=== PATIENT | male | born 1930 | race Caucasian/White ===

== ENCOUNTER 2016-09-16 16:20 | Inpatient (IN) | payer OTHER, MEDICARE ==
[2016-09-16] VITALS (7 sets, daily range): BP systolic 132–189; BP diastolic 72–84; PULSE 80–105; RESP 18–24; TEMP 98.2; O2SAT 93–95
[~2016-09-16 16:20] MED LIST: ADVA250A INH; ALBU0.086 INH; AMLO5TAB22 PO; ASPI81TA82 PO; CARD8TAB6 PO; DOCU1CAP39 PO; HYDR-2768 PO; LEVA500T PO; MEDR4PAK3 PO; MILKSUS5 PO; NIFE20 PO; PROS5TAB2 PO; SIMV5TAB3 PO; SULF500 PO; TAMS0.4C67 PO
--- NOTE | 2016-09-16 16:32 | PD ---
HPI . right arm pain/shoulder down to wrist also shortness of breath & coughing Chief Complaint: right arm pain/shoulder down to wrist Time Seen by Provider: 16:33 Travel History International Travel<30 days: No Contact w/Intl Traveler<30days: No Traveled to known affect area: No History of Present Illness HPI 85-year-old male with history of COPD here with complaints of right arm pain extending from the shoulder down to the wrist. He tells me that he fell about 2 days ago and has not been able to move his right arm. His pain starts in the shoulder and ranges down all the way to the wrist. He also tells me that he has had some significant shortness of breath and coughing. He denies any fever or chills or recent illness. He denies head injury or loss of consciousness. PFSH Past Medical History Anemia: Yes Arthritis: Yes Asthma: Yes Anxiety: Yes Depression: Yes Cancer: Yes (SKIN CA) Cardiovascular Problems: Yes High Cholesterol: Yes COPD: Yes Diminished Hearing: No Endocrine: No Gastrointestinal Disorders: Yes Genitourinary: Yes Headaches: Yes Hypertension: Yes Immune Disorder: No Musculoskeletal: Yes Neurologic: No Psychiatric: No Reproductive: No Respiratory: Yes Ulcer: Yes (BY HISTORY) Past Surgical History Abdominal Surgery: Yes (EDDIE. ING. HERNIA REP., CHOLECYSTECTOMY) Cholecystectomy: Yes Pacemaker: No Other Surgery: Yes (BACK SURGERY) Social History Alcohol Use: No Tobacco Use: No Substance Use: No Allergies-Medications (Allergen,Severity, Reaction): Coded Allergies: No Known Allergies (Verified , 09/16/16) Reported Meds & Prescriptions Reported Meds & Active Scripts Active Reported Donepezil Hydrochloride 5 Mg Tab 1 Tab PO DAILY Amlodipine (Amlodipine Besylate) 5 Mg Tab 5 Mg PO DAILY Tamsulosin (Tamsulosin HCl) 0.4 Mg Cap 0.4 Mg PO HS Citalopram (Citalopram Hydrobromide) 20 Mg Tab 20 Mg PO DAILY Multivitamin Adults (Multiple Vitamins W/ Minerals) 1 Tab 1 Tab PO DAILY Carvedilol 12.5 Mg Tab 12.5 Mg PO BID Aspirin Low Dose (Aspirin) 81 Mg Chew 81 Mg CHEW DAILY Review of Systems General / Constitutional: No: Fever Eyes: No: Visual changes HENT: No: Headaches Cardiovascular: No: Chest Pain or Discomfort Respiratory: Positive: Cough, Shortness of Breath Gastrointestinal: No: Abdominal Pain Genitourinary: No: Dysuria Musculoskeletal: Positive: Pain (right shoulder/arm/ wrist/ ) Skin: No Rash Neurologic: No: Weakness Psychiatric: No: Depression Endocrine: No: Polydipsia Hematologic/Lymphatic: No: Easy Bruising Physical Exam Exam Limitations: Poor Historian Narrative GENERAL: AAO x 3, no acute distress, Well-nourished, well-developed patient. SKIN: Warm and dry. No visible rashes or bruising. HEAD: Normocephalic and atraumatic. EYES: No scleral icterus. No injection or drainage. ENT: No nasal drainage noted. Mucous membranes pink. Airway patent. NECK: Supple, trachea midline. No JVD. CARDIOVASCULAR: tachycardic on examination RESPIRATORY: Diminished breath sounds bilaterally. Expiratory wheeze on auscultation. Rhonchi throughout. Hint of scattered rales at the base GASTROINTESTINAL: Abdomen soft, non-tender, nondistended. EXTREMITIES: Right upper extremity is edematous.radial and ulnar pulses normal, obvious deformity of right shoulder, unable to move joint at all. dependent edema in the right upper extremity, no tenderness over distal radius/ulna. no tenderness of elbow BACK: Nontender without obvious deformity. No CVA tenderness. PSYCH: AAO x 3, normal affect. Data Data Last Documented VS Vital Signs Date Time Temp Pulse Resp B/P Pulse Ox O2 Delivery O2 Flow Rate FiO2 09/16/16 17:05 105 24 184/79 94 Room Air 09/16/16 16:40 98.2 Orders Chest, Single Ap (09/16/16 16:58) Shoulder, Limited(2vws) (09/16/16 16:48) MDM Medical Decision Making Medical Screen Exam Complete: Yes Emergency Medical Condition: Yes Medical Record Reviewed: Yes Differential Diagnosis dislocated shoulder, fracture, AC joint separation, COPD exacerbation, compensated COPD, Narrative Course This is an 85-year-old male presented via emergency medical services with complaints of possible right wrist pain. Upon further discussion patient actually has right shoulder pain. He sustained a fall and is unable to move his right shoulder. There is an obvious deformity of the shoulder and it appears to be out of place, also there may be an underlying fracture. He is short of breath at rest with distinct gurgling heard clearly at the bedside. On auscultation his breath sounds are significantly diminished. He has rhonchi and wheezing present on examination. He also has what sounds like possible Rales in the bases. Patient becomes tachypneic with talking. Patient needs a medical bed for further evaluation. He is a poor historian. In the meantime, I have ordered a right shoulder xray and CXR. 17:27 I have discussed the case with Arturo Quintana. He will disposition this patient. Condition: Stable Samantha Smith September 16, 2016 16:32 significantly diminished. He has rhonchi and wheezing present on examination. He also has what sounds like possible Rales in the bases. Patient becomes tachypneic with talking. Patient needs a medical bed for further evaluation. He is a poor historian. In the meantime, I have ordered a right shoulder xray and CXR. Condition: Stable Samantha Smith September 16, 2016 16:32
[2016-09-16] MEDS ORDERED: ASPI81CH37 CHEW (17:21)
--- NOTE | 2016-09-16 17:21 | RADRPT ---
EXAM DATE/TIME: 09/16/2016 17:06 [facility] COMPARISON: No previous studies available for comparison. INDICATIONS : Right shoulder pain after fall. MEDICAL HISTORY : None. SURGICAL HISTORY : None. ENCOUNTER: Initial ACUITY: 2 days PAIN SCORE: 10/10 LOCATION: Right shoulder. FINDINGS: Limited 2 views of the right shoulder demonstrates a comminuted fracture through the proximal humerus . Due to discomfort, the humeral head is poorly profiled and I cannot determine if there is intra-art icular extension. Degenerative spurring of the a.c. joint. The glenoid and scapula appear to be intac t. Visualized portions of the adjacent lung are clear. CONCLUSION: 1. Comminuted fracture of the proximal humerus. 2. Degenerative spurring of the a.c. joint Abiodun Palencia MD on September 16, 2016 at 17:18 Board Certified Radiologist. This report was verified electronically.
[2016-09-16] MEDS ORDERED: DONE1TAB90 PO (17:25)
[2016-09-16] MEDS ORDERED: AMLO5TAB2 PO (17:25)
[2016-09-16] MEDS ORDERED: TAMS0.4C4 PO (17:25)
[2016-09-16] MEDS ORDERED: CARV12.52 PO (17:25)
[2016-09-16] MEDS ORDERED: CITA20TA4 PO (17:25)
[2016-09-16] MEDS ORDERED: MULT1TAB84 PO (17:25)
--- NOTE | 2016-09-16 17:25 | RADRPT ---
EXAM DATE/TIME: 09/16/2016 17:02 [facility] COMPARISON: CHEST SINGLE AP, April 25, 2013, 11:12. INDICATIONS : Short of breath, wheezing, and cough. MEDICAL HISTORY : None. SURGICAL HISTORY : None. ENCOUNTER: Initial ACUITY: >1 year PAIN SCORE: 0/10 LOCATION: Bilateral chest FINDINGS: A single view of the chest demonstrates the lungs to be symmetrically aerated without evidence of mas s, infiltrate or effusion. The cardiomediastinal contours are unremarkable. Osseous structures are intact. CONCLUSION: Normal examination. Diffuse interstitial prominence throughout the lungs Regino Vazquez MD on September 16, 2016 at 17:23 Board Certified Radiologist. This report was verified electronically.
--- NOTE | 2016-09-16 17:31 | PD ---
HPI Chief Complaint: Fall Time Seen by Provider: 17:30 Travel History International Travel<30 days: No Contact w/Intl Traveler<30days: No Traveled to known affect area: No History of Present Illness HPI 85-year-old male presents the emergency department status post fall 2 days ago. Patient had x-rays done at triage showing a comminuted fracture of the right proximal humerus. Patient is also complaining of increased shortness of breath. He has a history of COPD and chronic lung disease. Chest x-ray shows no acute process per radiologist that was performed in triage. Patient is unable to move his right arm. He is here for medical clearance. Patient complains only of pain in the right shoulder. He denies numbness, tingling, but is unable to move the shoulder secondary to his fracture. Patient has chronic COPD with chronic wheezing, but does report some increased mucus production the past several days. He denies fever, chills, or other symptoms. Patient uses Spiriva and nebulizers at home. PFSH Past Medical History Anemia: Yes Arthritis: Yes Asthma: Yes Anxiety: Yes Depression: Yes Cancer: Yes (SKIN CA) Cardiovascular Problems: Yes High Cholesterol: Yes COPD: Yes Diminished Hearing: No Endocrine: No Gastrointestinal Disorders: Yes Genitourinary: Yes Headaches: Yes Hypertension: Yes Immune Disorder: No Implanted Vascular Access Dvce: No Musculoskeletal: Yes Neurologic: No Psychiatric: No Reproductive: No Respiratory: Yes Ulcer: Yes (BY HISTORY) ?: Not Past Surgical History Abdominal Surgery: Yes (EDDIE. ING. HERNIA REP., CHOLECYSTECTOMY) Cholecystectomy: Yes Pacemaker: No Other Surgery: Yes (BACK SURGERY) Social History Alcohol Use: No Tobacco Use: No Substance Use: No Allergies-Medications (Allergen,Severity, Reaction): Coded Allergies: No Known Allergies (Verified , 09/16/16) Reported Meds & Prescriptions Reported Meds & Active Scripts Active Reported Donepezil Hydrochloride 5 Mg Tab 1 Tab PO DAILY Amlodipine (Amlodipine Besylate) 5 Mg Tab 5 Mg PO DAILY Tamsulosin (Tamsulosin HCl) 0.4 Mg Cap 0.4 Mg PO HS Citalopram (Citalopram Hydrobromide) 20 Mg Tab 20 Mg PO DAILY Multivitamin Adults (Multiple Vitamins W/ Minerals) 1 Tab 1 Tab PO DAILY Carvedilol 12.5 Mg Tab 12.5 Mg PO BID Aspirin Low Dose (Aspirin) 81 Mg Chew 81 Mg CHEW DAILY Physical Exam Narrative GENERAL: Patient appears in Mild distress SKIN: Warm and dry. Normal color. Normal turgor. No ecchymosis. HEAD: Atraumatic. Normocephalic. EYES: Pupils equal and round. No scleral icterus. No injection or drainage. ENT: No nasal bleeding or discharge. Mucous membranes pink and moist. NECK: Trachea midline. No JVD. Supple and nontender. CARDIOVASCULAR: Regular rate and rhythm. RESPIRATORY: No accessory muscle use. Diffuse mild wheezes and rhonchi to auscultation. Breath sounds equal bilaterally. GASTROINTESTINAL: Abdomen soft, non-tender, nondistended. Hepatic and splenic margins not palpable. MUSCULOSKELETAL: Extremities without clubbing, cyanosis, or edema. No obvious deformities. Patient is unable to move his right arm secondary to his fracture in the proximal humerus. Patient has normal neurovascular exam to the distal right upper extremity. Normal photographer finish strength. Brisk capillary refill. No other significant muscle skeletal findings are noted. NEUROLOGICAL: Awake and alert. No obvious cranial nerve deficits. Motor grossly within normal limits. Five out of 5 muscle strength in the arms and legs. Normal speech. PSYCHIATRIC: Appropriate mood and affect; insight and judgment normal. Data Data Last Documented VS Vital Signs Date Time Temp Pulse Resp B/P Pulse Ox O2 Delivery O2 Flow Rate FiO2 09/16/16 18:16 95 Room Air 09/16/16 17:05 105 24 184/79 09/16/16 16:40 98.2 Orders Chest, Single Ap (09/16/16 16:58) Shoulder, Limited(2vws) (09/16/16 16:48) Complete Blood Count With Diff (09/16/16 17:49) Comprehensive Metabolic Panel (09/16/16 17:49) B-Type Natriuretic Peptide (09/16/16 17:49) Act Partial Throm Time (Ptt) (09/16/16 17:49) Prothrombin Time / Inr (Pt) (09/16/16 17:49) Magnesium (Mg) (09/16/16 17:49) Ckmb (Isoenzyme) Profile (09/16/16 17:49) Troponin I (09/16/16 17:49) Iv Access Insert/Monitor (09/16/16 17:49) Electrocardiogram (09/16/16:49) Ecg Monitoring (09/16/16 17:49) Oximetry (09/16/16 17:49) Oxygen Administration (09/16/16 17:49) Sodium Chloride 0.9% Flush (Ns Flush) (09/16/16 18:00) Albuterol-Ipratropium Neb (Duoneb Neb) (09/16/16 18:00) CKMB (09/16/16 18:03) CKMB% (09/16/16 18:03) Sling And Swathe (09/16/16 ) Admit Order (Ed Use Only) (09/16/16 19:14) Consult Orthopedic (09/16/16 ) Labs Laboratory Tests Test 09/16/16 18:03 White Blood Count 13.9 TH/MM3 Red Blood Count 4.54 MIL/MM3 Hemoglobin 13.0 GM/DL Hematocrit 39.8 % Mean Corpuscular Volume 87.7 FL Mean Corpuscular Hemoglobin 28.7 PG Mean Corpuscular Hemoglobin 32.7 % Concent Red Cell Distribution Width 13.3 % Platelet Count 284 TH/MM3 Mean Platelet Volume 8.1 FL Neutrophils (%) (Auto) 78.7 % Lymphocytes (%) (Auto) 7.1 % Monocytes (%) (Auto) 10.6 % Eosinophils (%) (Auto) 2.6 % Basophils (%) (Auto) 1.0 % Neutrophils # (Auto) 10.9 TH/MM3 Lymphocytes # (Auto) 1.0 TH/MM3 Monocytes # (Auto) 1.5 TH/MM3 Eosinophils # (Auto) 0.4 TH/MM3 Basophils # (Auto) 0.1 TH/MM3 CBC Comment DIFF FINAL Differential Comment Prothrombin Time 11.4 SEC Prothromb Time International 1.0 RATIO Ratio Activated Partial 30.6 SEC Thromboplast Time Sodium Level 135 MEQ/L Potassium Level 3.8 MEQ/L Chloride Level 97 MEQ/L Carbon Dioxide Level 28.7 MEQ/L Anion Gap 9 MEQ/L Blood Urea Nitrogen 47 MG/DL Creatinine 2.87 MG/DL Estimat Glomerular Filtration 21 ML/MIN Rate Random Glucose 117 MG/DL Calcium Level 8.6 MG/DL Magnesium Level 2.4 MG/DL Total Bilirubin 0.8 MG/DL Aspartate Amino Transf 18 U/L (AST/SGOT) Alanine Aminotransferase 14 U/L (ALT/SGPT) Alkaline Phosphatase 79 U/L Total Creatine Kinase 227 U/L Creatine Kinase MB 4.2 NG/ML Troponin I LESS THAN 0.02 NG/ML B-Type Natriuretic Peptide 29 PG/ML Total Protein 7.3 GM/DL Albumin 3.5 GM/DL MDM Medical Decision Making Medical Screen Exam Complete: Yes Emergency Medical Condition: Yes Medical Record Reviewed: Yes Differential Diagnosis Fall. Shortness of breath. COPD. Right proximal humeral fracture. Narrative Course Patient is medically stable at time of exam. Labs ordered including CBC, CMP, cardiac panel, EKG. Chest x-ray was already ordered out for as well as his right shoulder x-ray. Right shoulder x-ray showed a comminuted fracture of the proximal right humerus. Chest x-ray showed chronic findings without acute per radiologist. EKG shows sinus rhythm with occasional supraventricular premature complexes. CBC shows mild leukocytosis of 13.9. Coagulation studies are unremarkable. Chemistries are remarkable for sodium of 135. Chloride of 97. He went 47. Creatinine of 2.87. This is markedly elevated from previous. Random glucose is 117. Troponin is less than 0.02. ProBNP is 29 Patient is placed in a shoulder immobilizer. Call was placed to the hospitalist for admission due to the patient's acute renal failure. Diagnosis Primary Impression: Elevated serum creatinine Additional Impressions: COPD (chronic obstructive pulmonary disease) Qualified Code: J44.9 - Chronic obstructive pulmonary disease, unspecified COPD type Closed comminuted right humeral fracture Condition: Stable Zak Quintana September 16, 2016 17:31
[2016-09-16] MEDS ORDERED: RESP: ALBUTEROL 2.5 MG/IPRATROPIUM 0.5 MG NEB (SCH) INH ONE (18:00)
[2016-09-16] MEDS ORDERED: SODIUM CHLORIDE 0.9% FLUSH 10 ML FLUSH IVF PRN (18:00)
[2016-09-16 18:17] LABS: AUTOMATED NEUTROPHIL # 10.9 TH/MM3 (1.8-7.7); BASOPHIL # 0.1 TH/MM3 (0-0.2); EOSINOPHIL # 0.4 TH/MM3 (0-0.4); EOSINOPHIL % 2.6 % (0.0-4.0); HEMATOCRIT 39.8 % (39.0-51.0); HEMO FLAGS DIFF FINAL; LYMPH % 7.1 % (9.0-44.0); MEAN CELL VOLUME 87.7 FL (80.0-100.0); MEAN CORPUSCULAR HEMOGLOBIN 28.7 PG (27.0-34.0); MEAN CORPUSCULAR HGB CONC 32.7 % (32.0-36.0); MONO % 10.6 % (0.0-8.0); NEUT % 78.7 % (16.0-70.0); PLATELET COUNT 284 TH/MM3 (150-450); RED BLOOD COUNT 4.54 MIL/MM3 (4.50-5.90); RED CELL DISTRIBUTION WIDTH 13.3 % (11.6-17.2); WHITE BLOOD COUNT 13.9 TH/MM3 (4.0-11.0)
[2016-09-16 18:34] LABS: ALT (GPT) 14 U/L (12-78); ANION GAP 9 MEQ/L (5-15); AST (GOT) 18 U/L (15-37); BICARBONATE 28.7 MEQ/L (21.0-32.0); BLOOD UREA NITROGEN 47 MG/DL (7-18); CHLORIDE 97 MEQ/L (98-107); GLOMERULAR FILTRATION RATE 21 ML/MIN (>89); MAGNESIUM 2.4 MG/DL (1.5-2.5); POTASSIUM 3.8 MEQ/L (3.5-5.1); SODIUM (NA) 135 MEQ/L (136-145)
[2016-09-16 18:39] LABS: ALKALINE PHOSPHATASE 79 U/L (45-117); CREATINE KINASE 227 U/L (39-308); TOTAL BILIRUBIN ADULT 0.8 MG/DL (0.2-1.0)
[2016-09-16 18:44] LABS: APTT (PATIENT) 30.6 SEC (24.3-30.1); PROTHROMBIN TIME - PATIENT 11.4 SEC (9.8-11.6)
[2016-09-16 18:51] LABS: CKMB 4.2 NG/ML (0.5-3.6)
[2016-09-16] MEDS ORDERED: NALOXONE HCL 0.4 MG/ML AMP IV PRN (19:45)
[2016-09-16] MEDS ORDERED: SODIUM CHLORIDE 0.9% FLUSH 10 ML FLUSH IV FLUSH PRN (19:45)
[2016-09-16] MEDS ORDERED: SENNOSIDES 8.6 MG TAB PO PRN (19:45)
[2016-09-16] MEDS ORDERED: ACETAMINOPHEN 325 MG TAB PO PRN (19:45)
[2016-09-16] MEDS ORDERED: ONDANSETRON HCL 4 MG/2 ML VIAL IVP PRN (19:45)
[2016-09-16] MEDS ORDERED: RESP: ALBUTEROL 2.5 MG/IPRATROPIUM 0.5 MG NEB (PRN) NEB (20:00)
[2016-09-16] MEDS: SODIUM CHLOR 0.9% 1000 ML INJ 1,000 ML IV SCH (20:58)
[2016-09-16] MEDS: SODIUM CHLORIDE 0.9% FLUSH 10 ML FLUSH IV FLUSH SCH (21:00)
[2016-09-16] MEDS: RESP: ALBUTEROL 2.5 MG/IPRATROPIUM 0.5 MG NEB (SCH) NEB (21:24)
--- NOTE | 2016-09-16 23:54 | HHI.HP ---
[facility] Service [facility] Primary Care Physician Chaim Hamm MD Admission Diagnosis Elevated Creatinine/Right humeral Fracture. Diagnoses: Travel History International Travel<30 Days: No Contact w/Intl Traveler <30 Da: No Traveled to Known Affected Are: No History of Present Illness History from patient, ER physician communication, and review of medical records. Patient reported that he was walking on his lawn and tripped on his toes and fell onto his right side. He reports that he simply tripped. She denies any premonitory symptoms prior to this fall. Denies hitting his head. Denies loss of consciousness. Patient denies any recent fevers/nausea/vomiting/diarrhea/urinary burning or pain on urination. Denies any hematemesis/hematochezia/melena/hematuria. Patient states that the fall actually happened on Tuesday. However for the next 1-1/2 days, he was having increasing pain on his right upper extremity around the shoulder areas and he finally decided to come to hospital. Denies history of frequent falls. Patient is noted to be coughing during my interview. He reports that this is his chronic cough for past several months. He does have history of COPD and uses inhalers at home. He reports that at one point, he was prescribed oxygen. Somehow the oxygen company is no longer in business here and therefore he states he lost his oxygen. He is requesting whether he could be placed back on oxygen at home because of this coughing episodes. Review of Systems Except as stated in HPI: all other systems reviewed are Neg Past Family Social History Past Medical History Hypertension COPD Hyperlipidemia Obesity Past Surgical History cholecystectomy appendectomy hernia sx back sx bunion left knee sx Allergies: Coded Allergies: No Known Allergies (Verified , 09/16/16) Family History none Social History used to smoke, quit 20yrs ago used to drink socially, but quit that no drug abuse lives with , still driving, has 2 dogs Physical Exam Vital Signs Vital Signs Date Time Temp Pulse Resp B/P Pulse Ox O2 Delivery O2 Flow Rate FiO2 09/16/16 23:40 64 18 155/78 94 Nasal Cannula 2 09/16/16 21:52 92 18 165/74 94 Nasal Cannula 2 09/16/16 21:24 95 Nasal Cannula 2.00 09/16/16 18:16 95 Room Air 09/16/16 18:16 95 Room Air 09/16/16 17:05 105 24 184/79 94 Room Air 09/16/16 16:40 98.2 104 22 189/84 94 Physical Exam GENERAL: This is a well-nourished, well-developed patient, in no apparent distress. SKIN: No rashes, ecchymoses or lesions. Cool and dry. HEAD: Atraumatic. Normocephalic. No temporal or scalp tenderness. EYES: No scleral icterus. No injection or drainage. ENT: Nose without bleeding, purulent drainage or septal hematoma. Airway patent. NECK: Trachea midline. No JVD CARDIOVASCULAR: Regular rate and rhythm without murmurs, gallops, or rubs. RESPIRATORY: Bilaterally decreased air entry. No significant rales or wheezing. However does have quite a bit of upper airway throat congestion with cough. GASTROINTESTINAL: Abdomen soft, non-tender, nondistended. No guarding. MUSCULOSKELETAL: Extremities without clubbing, cyanosis, or edema. . No calf tenderness. NEUROLOGICAL: Awake and alert. Right upper extremity in sling. Strong right radial pulses. Able to wiggle his fingers. Normal speech. Laboratory Laboratory Tests Test 09/16/16 18:03 White Blood Count 13.9 Red Blood Count 4.54 Hemoglobin 13.0 Hematocrit 39.8 Mean Corpuscular Volume 87.7 Mean Corpuscular Hemoglobin 28.7 Mean Corpuscular Hemoglobin 32.7 Concent Red Cell Distribution Width 13.3 Platelet Count 284 Mean Platelet Volume 8.1 Neutrophils (%) (Auto) 78.7 Lymphocytes (%) (Auto) 7.1 Monocytes (%) (Auto) 10.6 Eosinophils (%) (Auto) 2.6 Basophils (%) (Auto) 1.0 Neutrophils # (Auto) 10.9 Lymphocytes # (Auto) 1.0 Monocytes # (Auto) 1.5 Eosinophils # (Auto) 0.4 Basophils # (Auto) 0.1 CBC Comment DIFF FINAL Differential Comment Prothrombin Time 11.4 Prothromb Time International 1.0 Ratio Activated Partial 30.6 Thromboplast Time Sodium Level 135 Potassium Level 3.8 Chloride Level 97 Carbon Dioxide Level 28.7 Anion Gap 9 Blood Urea Nitrogen 47 Creatinine 2.87 Estimat Glomerular Filtration 21 Rate Random Glucose 117 Calcium Level 8.6 Magnesium Level 2.4 Total Bilirubin 0.8 Aspartate Amino Transf 18 (AST/SGOT) Alanine Aminotransferase 14 (ALT/SGPT) Alkaline Phosphatase 79 Total Creatine Kinase 227 Creatine Kinase MB 4.2 Troponin I LESS THAN 0.02 B-Type Natriuretic Peptide 29 Total Protein 7.3 Albumin 3.5 Result Diagram: 09/16/16 1803 09/16/16 180 Imaging Last 48 hours Impressions Chest X-Ray [id number]/16/[id number] Signed Impressions: Service Date/Time: August 17:02 - CONCLUSION: Normal examination. Diffuse interstitial prominence throughout the lungs Regino Vazquez MD Shoulder X-Ray [id number] Signed Impressions: Service Date/Time: , September 16, 2016 17:06 - CONCLUSION: 1. Comminuted fracture of the proximal humerus. 2. Degenerative spurring of the a.c. joint Abiodun Palencia MD Assessment and Plan Assessment and Plan Impression: Status post fallwith right proximal humerus fracture Cough and congestionmostly from upper airway. Lung exam is clear. Chest x- ray is clear. Acute renal failureper patient, he has no prior history of renal insufficiency. Likely this is from dehydration. Hypertension COPD Hyperlipidemia Obesity Plan: IV hydration. Will follow BMP for improvement of renal function. Right upper extremity with sling. Orthopedics was consulted. Will follow recommendations. As to his upper airway congestion was cough, we would monitor him clinically. He has no fever, no leukocytosis, chest x-ray is clear. He also reports of chronicity of this cough. Would monitor for signs and symptoms of infection. Resume home meds. DVT prophylaxiswith heparin.. Discussed Condition With Patient, ER physician, patient's nurse Maggie Sutton MD September 16, 2016 23:54
[2016-09-17] VITALS (11 sets, daily range): BP systolic 134–186; BP diastolic 63–89; PULSE 67–99; RESP 17–20; TEMP 96.3–98.2; O2SAT 92–97
[2016-09-17] MEDS ORDERED: RESP: ALBUTEROL 2.5 MG/IPRATROPIUM 0.5 MG NEB (PRN) NEB (00:15)
[2016-09-17] MEDS: RESP: ALBUTEROL 2.5 MG/IPRATROPIUM 0.5 MG NEB (SCH) NEB ×3 (02:49→16:00)
[2016-09-17 07:32] LABS: AUTOMATED NEUTROPHIL # 8.1 TH/MM3 (1.8-7.7); BASOPHIL # 0.1 TH/MM3 (0-0.2); BASOPHIL % 0.6 % (0.0-2.0); EOSINOPHIL # 0.4 TH/MM3 (0-0.4); EOSINOPHIL % 3.5 % (0.0-4.0); HEMATOCRIT 36.1 % (39.0-51.0); HEMO FLAGS DIFF FINAL; LYMPH % 11.1 % (9.0-44.0); LYMPHOCYTE # 1.2 TH/MM3 (1.0-4.8); MEAN CELL VOLUME 87.6 FL (80.0-100.0); MEAN CORPUSCULAR HEMOGLOBIN 28.8 PG (27.0-34.0); MEAN CORPUSCULAR HGB CONC 32.8 % (32.0-36.0); MONO % 10.9 % (0.0-8.0); NEUT % 73.9 % (16.0-70.0); PLATELET COUNT 237 TH/MM3 (150-450); RED BLOOD COUNT 4.12 MIL/MM3 (4.50-5.90); RED CELL DISTRIBUTION WIDTH 13.5 % (11.6-17.2); WHITE BLOOD COUNT 10.9 TH/MM3 (4.0-11.0)
[2016-09-17 07:53] LABS: POTASSIUM 4.3 MEQ/L (3.5-5.1)
[2016-09-17] MEDS ORDERED: DONEPEZIL HYDROCHLORIDE PO SCH (09:00)
[2016-09-17] MEDS: SODIUM CHLORIDE 0.9% FLUSH 10 ML FLUSH IV FLUSH SCH ×2 (09:00→21:48)
--- NOTE | 2016-09-17 09:34 | HHI.PR ---
Subjective Remarks Follow up RT humerus fx, and PAULO. Patient laying in bed appears to be comfortable. Rt arm is in a sling. Patient denies any shoulder pain, chest pain , sob or nausea. Denies any numbness or tingling. Objective Vitals Vital Signs Date Time Temp Pulse Resp B/P Pulse Ox O2 Delivery O2 Flow Rate FiO2 09/17/16 08:32 97.9 70 18 184/86 96 09/17/16 03:44 97.4 80 19 134/63 94 09/17/16 03:00 97 09/17/16 01:27 97.7 76 20 186/89 92 09/16/16 23:40 64 18 155/78 94 Nasal Cannula 2 09/16/16 21:52 92 18 165/74 94 Nasal Cannula 2 09/16/16 21:24 95 Nasal Cannula 2.00 09/16/16 19:30 80 18 132/72 93 Nasal Cannula 2 09/16/16 18:16 95 Room Air 09/16/16 18:16 95 Room Air 09/16/16 17:05 105 24 184/79 94 Room Air 09/16/16 16:40 98.2 104 22 189/84 94 I/O 09/16/16 09/16/16 09/16/16 09/17/16 09/17/16 09/17/16 07:00 15:00 23:00 07:00 15:00 23:00 Intake Total 399 ml Balance 399 ml Intake Oral 240 ml IV Total 159 ml # Voids 1 Result Diagram: 09/17/16 0706 09/17/16 0706 Imaging Last Impressions Chest X-Ray 09/16/161657 Signed Impressions: Service Date/Time: August 17:02 - CONCLUSION: Normal examination. Diffuse interstitial prominence throughout the lungs Regino Vazquez MD Shoulder X-Ray 09/16/16 1648 Signed Impressions: Service Date/Time: August 17:06 - CONCLUSION: 1. Comminuted fracture of the proximal humerus. 2. Degenerative spurring of the a.c. joint Abiodun Palencia MD Objective Remarks GENERAL: This is a well-nourished, well-developed patient, in no apparent distress. Rt arm in a sling SKIN: No rashes, ecchymoses or lesions. Cool and dry. HEAD: Atraumatic. Normocephalic. No temporal or scalp tenderness. EYES: No scleral icterus. No injection or drainage. ENT: Nose without bleeding, purulent drainage or septal hematoma. Airway patent. NECK: Trachea midline. No JVD. CARDIOVASCULAR: Regular rate and rhythm without murmurs, gallops, or rubs. RESPIRATORY: Bilaterally decreased air entry. No significant rales or wheezing. Upper airway bronchial sounds with congestion GASTROINTESTINAL: Abdomen soft, non-tender, nondistended. No guarding. MUSCULOSKELETAL: Rt upper extremity with edema. . No calf tenderness. NEUROLOGICAL: Awake and alert. Right upper extremity in sling. Strong right radial pulses. Able to wiggle his fingers. No tingling or numbness. Normal speech. Medications and IVs Last Impressions Chest X-Ray 09/16/161657 Signed Impressions: Service Date/Time: , September 16, 2016 17:02 - CONCLUSION: Normal examination. Diffuse interstitial prominence throughout the lungs Regino Vazquez MD Shoulder X-Ray 09/16/161647 Signed Impressions: Service Date/Time: , September 16, 2016 17:06 - CONCLUSION: 1. Comminuted fracture of the proximal humerus. 2. Degenerative spurring of the a.c. joint Abiodun Palencia MD A/P Problem List: (1) Closed comminuted right humeral fracture ICD Code: S42.351A Status: Acute (2) Acute kidney injury ICD Code: N17.9 Status: Acute (3) COPD (chronic obstructive pulmonary disease) ICD Code: J44.9 Status: Chronic (4) HTN (hypertension) ICD Code: I10 Status: Chronic Assessment and Plan 85 y/o male with a history of HTN, COPD, HLD, and obesity presented to the ED with complaints of right shoulder pain. Closed comminuted right humeral fracture, xray shows comminuted fracture of the proximal humerus -Orthopedics was consulted for recommendations. -Pain management with -Cont Right upper extremity with sling. Acute Kidney injury, base line creatine 1.0, creatine slightly improving 2.87--> 2.18, unknown reason for PAULO -Cont IV hydration, with NS bolus 250mg -Trend BMP -UA ordered, urine sodium ordered -Renal US ordered COPD, chronic, patient at one time was on home oxygen, chronic cough past 2 months, leukocytosis 13.5-->10.9, chest x-ray is shows interstitial prominence. -Dounebs -Resp walk test to determine need for home oxygen Leukocytosis 13.5-->10.9, chest x-ray is shows interstitial prominence, possible pneumonia -Azithromycin PO [id number] then 250mg daily HTN, chronic -Resume home medications: Coreg, Norvasc DVT prophylaxis: Heparin. Discharge Planning Pending ortho evaluation Problem Qualifiers (1) COPD (chronic obstructive pulmonary disease): Qualified Code: J44.9 - Chronic obstructive pulmonary disease, unspecified COPD type Sonia Dykes September 17, 2016 09:34
[2016-09-17] MEDS: CARVEDILOL 12.5 MG TAB PO SCH ×2 (10:33→21:43)
[2016-09-17] MEDS: DONEPEZIL HCL 5 MG TAB PO SCH (10:33)
[2016-09-17] MEDS: amLODIPine BESYLATE 5 MG TAB PO SCH (10:33)
[2016-09-17] MEDS: ASPIRIN 81 MG CHEW TAB CHEW SCH (10:34)
[2016-09-17] MEDS: CITALOPRAM HYDROBROMIDE 20 MG TAB PO SCH (10:34)
[2016-09-17] MEDS ORDERED: AZITHROMYCIN 250 MG TAB PO ONE (12:15)
[2016-09-17] MEDS ORDERED: SODIUM CHLOR 0.9% 250 ML INJ 250 ML IV ONE (12:15)
[2016-09-17] MEDS: HEPARIN SODIUM - SQ 10,000 UNITS/ML VIAL SQ SCH ×2 (12:50→21:48)
[2016-09-17] MEDS: SODIUM CHLOR 0.9% 1000 ML INJ 1,000 ML IV SCH (16:30)
--- NOTE | 2016-09-17 18:23 | RADRPT ---
EXAM DATE/TIME: 09/17/2016 17:23 [facility] COMPARISON: No previous studies available for comparison. INDICATIONS : Increased BUN/creatinine. MEDICAL HISTORY : Hypercholesterolemia. Arthritis. Emphysema. Chronic obstructive pulmonary disorder. Asthma. Ulcer. Be nign prostatic hypertrophy. Hypertension. Anemia. Skin cancer. Depression. Anxiety. SURGICAL HISTORY : Cholecystectomy. Bilateral inguinal hernia repair. Left knee scopy. Right foot bunionectomy. Back . ENCOUNTER: Initial ACUITY: 1 day PAIN SCORE: 6/10 LOCATION: Bilateral flank MEASUREMENTS: RIGHT KIDNEY: 12.0 x 5.4 x 5.4 cm LEFT KIDNEY: 11.6 x 6.3 x 6.4 cm FINDINGS: RIGHT KIDNEY: Renal cortex is normal in thickness and echotexture. No hydronephrosis, stone, or mass. LEFT KIDNEY: Renal cortex is normal in thickness and echotexture. No hydronephrosis, stone, or mass. BLADDER: Within normal limits given the degree of distension. Incidentally seen enlarged spleen, measures around 15 cm craniocaudal. CONCLUSION: Ultrasound appearance of the kidneys and urinary bladder within normal limits. Nonspecific splenomega ly. Davonte Lam MD on September 17, 2016 at 18:21 Board Certified Radiologist. This report was verified electronically.
[2016-09-17 21:28] LABS: BACTERIA, URINE RARE /hpf; BLOOD, URINE MOD (NEG); COMMENT (UR) CULTURE INDICATED; CULTURE IF INDICATED CULTURE INDICATED; GLUCOSE,URINE NEG (NEG); HYALINE CAST, URINE 1 /lpf (RARE); KETONE, URINE TRACE mg/dL (NEG); MUCUS URINE FEW /lpf (OCC); NITRITE,URINE NEG (NEG); URINE COLOR YELLOW (YELLW/STRAW)
--- NOTE | 2016-09-17 21:38 | EKG ---
Date Performed: 09/16/2016 Time Performed: 18:24:35 PTAGE: 85 years EKG: Sinus rhythm WITH OCCASIONAL SUPRAVENTRICULAR PREMATURE COMPLEXES MARKED LEFT AXIS DEVIATION RIGHT BUNDLE BRANCH BLOCK ABNORMAL ECG NO PREVIOUS TRACING DOCTOR: Eric Cote Interpretating Date/Time 09/17/2016 21:37:19
[2016-09-17] MEDS: TAMSULOSIN HCL 0.4 MG CAP PO SCH (21:43)
[2016-09-18] VITALS (7 sets, daily range): BP systolic 128–167; BP diastolic 59–65; PULSE 68–88; RESP 17–20; TEMP 97–97.2; O2SAT 91–96
[2016-09-18] MEDS: RESP: ALBUTEROL 2.5 MG/IPRATROPIUM 0.5 MG NEB (SCH) NEB ×4 (04:16→20:16)
[2016-09-18 05:28] LABS: AUTOMATED NEUTROPHIL # 6.7 TH/MM3 (1.8-7.7); BASOPHIL # 0.1 TH/MM3 (0-0.2); BASOPHIL % 1.4 % (0.0-2.0); EOSINOPHIL # 0.6 TH/MM3 (0-0.4); HEMATOCRIT 36.5 % (39.0-51.0); HEMO FLAGS DIFF FINAL; LYMPH % 8.4 % (9.0-44.0); LYMPHOCYTE # 0.8 TH/MM3 (1.0-4.8); MEAN CELL VOLUME 87.6 FL (80.0-100.0); MEAN CORPUSCULAR HEMOGLOBIN 28.6 PG (27.0-34.0); MEAN CORPUSCULAR HGB CONC 32.7 % (32.0-36.0); MONO % 12.4 % (0.0-8.0); NEUT % 71.8 % (16.0-70.0); PLATELET COUNT 245 TH/MM3 (150-450); RED BLOOD COUNT 4.17 MIL/MM3 (4.50-5.90); RED CELL DISTRIBUTION WIDTH 13.6 % (11.6-17.2); WHITE BLOOD COUNT 9.3 TH/MM3 (4.0-11.0)
[2016-09-18 05:38] LABS: BICARBONATE 26.1 MEQ/L (21.0-32.0); MAGNESIUM 2.3 MG/DL (1.5-2.5)
[2016-09-18] MEDS: HEPARIN SODIUM - SQ 10,000 UNITS/ML VIAL SQ SCH ×3 (05:49→20:57)
[2016-09-18] MEDS: SODIUM CHLOR 0.9% 1000 ML INJ 1,000 ML IV SCH ×2 (05:50→19:10)
[2016-09-18] MEDS ORDERED: AZITHROMYCIN 250 MG TAB PO SCH (09:00)
--- NOTE | 2016-09-18 09:18 | MB ---
cc: [facility] DATE OF CONSULTATION: 09/18/2016 REASON FOR CONSULTATION: Right proximal wrist fracture. HISTORY This patient is a 85-year-old male who was walking a tripped and fell, landed on his right side. He developed severe onset of pain over his right shoulder. He denies hitting his head. Denies loss consciousness, pain is sharp throbbing, worsening symptoms with any movement of that arm. He was taken to [facility] emergency room, x-rays confirm evidence of right comminuted proximal radius fractures placed in sling, orthopedic surgery has been counseled further evaluation of this injury condition. He denies numbness, or tingling, denies referred symptoms. PAST MEDICAL HISTORY: Past history of hypertension COPD Hyperlipidemia Obesity. SURGERIES Cholecystectomy Appendectomy Hernia Back surgery Bunion surgery Left knee surgery ALLERGIES NO KNOWN DRUG ALLERGIES. FAMILY HISTORY Reviewed, Noncontributory. SOCIAL HISTORY: He has a history of prior smoking, he quit 20 years ago. He also history of drinking alcohol but he stopped drinking many years ago. No drug abuse, he is and lives with his . REVIEW OF SYSTEMS Review of systems negative 12 systems other than HPI. PHYSICAL EXAMINATION: VITAL SIGNS: The patient's temperature 98.2, pulse of 80, respiration 20, blood pressure 180/90. IN GENERAL: Patient is a well-nourished obese male awake, alert lying in bed no acute distress. SKIN: The skin is warm, dry, intact. HEAD, EYES, EARS, NOSE, AND THROAT: Normocephalic, atraumatic. Pupils round, extraocular muscles intact. NECK: Neck is supple. LUNGS: Clear. HEART: Regular rate and rhythm. ABDOMEN: The abdomen is soft, nontender. EXTREMITIES: The right shoulder has mild swelling, ecchymoses he has pain with passive motion of his right shoulder. Skin: Intact. 2+ radial pulse. Brisk cap refill, sensation intact. His motions limited due to pain. LABORATORY FINDINGS: White blood cell count is 13, hemoglobin 13, hematocrit 39. X-RAYS Right shoulder shows a comminuted proximal humerus fracture with only mild displacement. Arthritis of the acromioclavicular joint. IMPRESSION This patient is a 85-year male, status post fall, right proximal fractures, comminution but only mild displacement. PLAN Diagnosis, and treatment options, I recommend nonoperative treatment. To maintain sling and swath immobilization. He can follow up with the undersigned at the orthopedic clinic of [facility] within two weeks of discharge. MD JENNIFER Vaughn/merlyn /8:05 AM /9:06 AM
[2016-09-18] MEDS: CARVEDILOL 12.5 MG TAB PO SCH ×2 (10:04→20:56)
[2016-09-18] MEDS: CITALOPRAM HYDROBROMIDE 20 MG TAB PO SCH (10:04)
[2016-09-18] MEDS: ASPIRIN 81 MG CHEW TAB CHEW SCH (10:04)
[2016-09-18] MEDS: amLODIPine BESYLATE 5 MG TAB PO SCH (10:05)
[2016-09-18] MEDS: SODIUM CHLORIDE 0.9% FLUSH 10 ML FLUSH IV FLUSH SCH ×2 (10:05→20:58)
[2016-09-18] MEDS: DONEPEZIL HCL 5 MG TAB PO SCH (10:05)
--- NOTE | 2016-09-18 10:40 | HHI.PR ---
Subjective Remarks Patient seen for f/u right humerus fx. 09/18/16-patient seen this AM. No acute events overnight. Sats down to 91 this AM on 2L NC. Other vitals WNL. Patient has no complaints this morning. Feels SOB slightly worse than baseline. Cough is main complaint today. Would like medicine for this, if possible. Does endorse O2 requirement at home, but apparently has not needed for several months. Feels pain adequately controlled. Denies any CP or F/C. Objective Vitals Vital Signs Date Time Temp Pulse Resp B/P Pulse Ox O2 Delivery O2 Flow Rate FiO2 09/18/16 08:07 Nasal Cannula 2.00 21 09/18/16 04:19 91 Nasal Cannula 21 09/18/16 04:00 97.1 68 17 139/65 91 09/17/16 23:37 98.2 67 17 139/67 95 09/17/16 21:00 96 Nasal Cannula 2.00 09/17/16 19:00 96.3 76 18 173/84 94 09/17/16 15:15 97.0 68 18 146/70 97 09/17/16 15:01 Nasal Cannula 2.00 09/17/16 12:27 99 09/17/16 12:17 97.8 72 18 140/67 95 09/17/16 11:09 95 21 I/O 09/17/16 09/17/16 09/17/16 09/18/16 09/18/16 09/18/16 07:00 15:00 23:00 07:00 15:00 23:00 Intake Total 399 ml 480 ml 480 ml Output Total 3 ml Balance 399 ml 477 ml 480 ml Intake Oral 240 ml 480 ml 480 ml IV Total 159 ml Output Urine Total 3 ml # Voids 1 3 # Bowel Movements 0 0 Result Diagram: 09/18/16 0347 09/18/16 0347 Objective Remarks GENERAL: This is a well-nourished, well-developed patient, in no apparent distress. Sitting up in chair. Speaking in full sentences. Rt arm in a sling. SKIN: No rashes, ecchymoses or lesions. Cool and dry. CARDIOVASCULAR: Regular rate and rhythm without murmurs, gallops, or rubs. RESPIRATORY: No accessory muscle use. Air entry decreased at the bases bilaterally with faint expiratory wheezing. Also has rales at the bases that clear with coughing. GASTROINTESTINAL: Abdomen soft, non-tender, nondistended. No guarding. MUSCULOSKELETAL: Rt upper extremity with edema. . No calf tenderness. NEUROLOGICAL: Awake and alert. Right upper extremity in sling. Strong right radial pulses. Able to wiggle his fingers. No tingling or numbness. Normal speech. A/P Problem List: (1) Closed comminuted right humeral fracture ICD Code: S42.351A Status: Acute (2) Acute kidney injury ICD Code: N17.9 Status: Acute (3) COPD (chronic obstructive pulmonary disease) ICD Code: J44.9 Status: Chronic (4) HTN (hypertension) ICD Code: I10 Status: Chronic Assessment and Plan 85 y/o male with a history of HTN, COPD, HLD, and obesity presented to the ED with complaints of right shoulder pain. Closed comminuted right humeral fracture, xray shows comminuted fracture of the proximal humerus -Orthopedics was consulted. Have recommended non-operative management with sling and swath. Follow up in 2 weeks. -Pain management with [facility] -Cont Right upper extremity with sling. Acute Kidney injury, base line creatine 1.0 -Improving. Creatinine 1.37 today compared to 2.87 on admission. -Trend BMP -UA + for blood and LE with 40 WBC. Urine cx pending. -Renal US negative COPD, chronic, patient at one time was on home oxygen, chronic cough past 2 months, leukocytosis 13.5-->10.9, chest x-ray is shows interstitial prominence. -Dounebs -abx, as below -add robitussin AC for cough -check blood gas -CPT -Resp walk test to determine need for home oxygen Abnormal UA -suspicious for UTI. Tx with levaquin. DC azithromycin, as below. Leukocytosis 13.5-->9.3, chest x-ray is shows interstitial prominence, possible pneumonia -UTI versus PNA. Tx with levaquin. Monitor daily CBC -check lactic acid, CRP HTN, chronic -Resume home medications: Coreg, Norvasc DVT prophylaxis: Heparin. Problem Qualifiers (1) COPD (chronic obstructive pulmonary disease): Qualified Code: J44.9 - Chronic obstructive pulmonary disease, unspecified COPD type Dony Gallegos MD R3 September 18, 2016 10:40
[2016-09-18] MEDS ORDERED: guaiFENesin/CODEINE SYRUP 200 MG/20 MG/10 ML CUP PO PRN (11:30)
[2016-09-18] MEDS: ACETAMINOPHEN/HYDROcodone 325 MG/5 MG TAB PO PRN (12:06)
[2016-09-18 12:08] LABS: BLOOD GAS BASE EXCESS 1.5 mmol/L (-2-2); BLOOD GAS CARBOXYHEMOGLOBIN 1.4 % (0-4); BLOOD GAS HCO3 25 mmol/L (22-26); BLOOD GAS METHEMOGLOBIN 0.7 % (0-2); BLOOD GAS O2 HGB SATURATION 89 % (90-100); BLOOD GAS OXYGEN CONTENT 15.2 Vol % (12.0-20.0); BLOOD GAS PCO2 39 mmHg (38-42); BLOOD GAS PO2 57 mmHg (61-120); BLOOD GAS TOTAL HGB 12.2 G/DL (12.0-16.0); TEMP CORR TO 98.6
[2016-09-18 12:09] LABS: CRITICAL VALUE YES; DRAW SITE LT RADIAL; FIO2 21 %; NUMBER OF ARTERIAL PUNCTURES 1; STAT NO; ULNAR PULSE PRESENT
--- NOTE | 2016-09-18 12:31 | HHI.FPPN ---
Addendum to progress note ADDENDUM Reason for addendum: Additonal documentation Additional information Called by nursing with critical lab value. ABG showed pO2 57. Now satting 92% on 2L NC. CRP in the 4s. Patient started on IV levaquin. Will check blood cx. Dony Gallegos MD R3 September 18, 2016 12:31
[2016-09-18] MEDS: LEVOFLOXACIN 750 MG PREMIX INJ 150 ML IV SCH (12:47)
[2016-09-18] MEDS: TAMSULOSIN HCL 0.4 MG CAP PO SCH (20:56)
[2016-09-19] VITALS (13 sets, daily range): BP systolic 126–166; BP diastolic 60–78; PULSE 61–90; RESP 17–24; TEMP 96.2–98.1; O2SAT 92–97
[2016-09-19] MEDS: RESP: ALBUTEROL 2.5 MG/IPRATROPIUM 0.5 MG NEB (SCH) NEB ×4 (03:39→20:37)
[2016-09-19 05:50] LABS: AUTOMATED NEUTROPHIL # 6.4 TH/MM3 (1.8-7.7); BASOPHIL # 0.1 TH/MM3 (0-0.2); BASOPHIL % 0.6 % (0.0-2.0); EOSINOPHIL # 0.5 TH/MM3 (0-0.4); EOSINOPHIL % 5.2 % (0.0-4.0); HEMATOCRIT 33.6 % (39.0-51.0); HEMO FLAGS DIFF FINAL; LYMPHOCYTE # 0.8 TH/MM3 (1.0-4.8); MEAN CELL VOLUME 86.3 FL (80.0-100.0); MEAN CORPUSCULAR HEMOGLOBIN 29.3 PG (27.0-34.0); MEAN CORPUSCULAR HGB CONC 33.9 % (32.0-36.0); MONO % 11.5 % (0.0-8.0); NEUT % 73.7 % (16.0-70.0); PLATELET COUNT 242 TH/MM3 (150-450); RED CELL DISTRIBUTION WIDTH 13.1 % (11.6-17.2); WHITE BLOOD COUNT 8.7 TH/MM3 (4.0-11.0)
[2016-09-19 05:55] LABS: BICARBONATE 27.6 MEQ/L (21.0-32.0); POTASSIUM 4.2 MEQ/L (3.5-5.1)
[2016-09-19] MEDS: HEPARIN SODIUM - SQ 10,000 UNITS/ML VIAL SQ SCH ×3 (06:20→22:06)
[2016-09-19] MEDS: SODIUM CHLOR 0.9% 1000 ML INJ 1,000 ML IV SCH ×2 (08:30→22:08)
--- NOTE | 2016-09-19 09:02 | HHI.PR ---
Subjective Remarks Patient seen and examined this am. Vitals are stable and the patient is afebrile. Continues to have cough, is productive. Not using cough syrup. Complaining of pain in right arm. States he has tried to get in to see a lung doctor but states has not had a luck in finding one. Has not been seen by PCP in over a year. Wants to go to rehab in [place]. Objective Vital Signs Date Time Temp Pulse Resp B/P Pulse Ox O2 Delivery O2 Flow Rate FiO2 09/19/16 04:00 97.6 70 24 155/76 97 09/19/16 00:19 61 09/19/16 00:00 97.6 80 20 146/76 92 09/18/16 20:19 93 Nasal Cannula 2.00 09/18/16 20:00 97.0 69 20 167/65 96 09/18/16 19:44 Nasal Cannula 2.00 09/18/16 16:17 88 09/18/16 12:13 97.2 72 17 128/59 93 09/18/16 10:26 94 I/O 09/18/16 09/18/16 09/18/16 09/19/16 09/19/16 09/19/16 07:00 15:00 23:00 07:00 15:00 23:00 Intake Total 480 ml 820 ml 780 ml 240 ml Output Total 600 ml Balance 480 ml 820 ml 780 ml -360 ml Intake Oral 480 ml 720 ml 780 ml 240 ml IV Total 100 ml Output Urine Total 600 ml # Voids 3 3 1 # Bowel Movements 0 0 0 0 Result Diagram: 09/19/16 0501 09/19/16 0501 Imaging Last Impressions Renal Ultrasound 09/17/16 0000 Signed Impressions: Service Date/Time: Saturday, September 17, 2016 17:23 - CONCLUSION: Ultrasound appearance of the kidneys and urinary bladder within normal limits. Nonspecific splenomegaly. Davonte Lam MD Chest X-Ray 09/16/16 181 Signed Impressions: Service Date/Time: August 17:02 - CONCLUSION: Normal examination. Diffuse interstitial prominence throughout the lungs Regino Vazquez MD Shoulder X-Ray 09/16/16 3403 Signed Impressions: Service Date/Time: August 17:06 - CONCLUSION: 1. Comminuted fracture of the proximal humerus. 2. Degenerative spurring of the a.c. joint Abiodun Palencia MD Objective Remarks GENERAL: This is a well-nourished, well-developed patient, in no apparent distress. Sitting up in bed. Speaking in full sentences. Rt arm in a sling. SKIN: No rashes, ecchymoses or lesions. Cool and dry. CARDIOVASCULAR: Regular rate and rhythm without murmurs, gallops, or rubs. RESPIRATORY: No accessory muscle use. Coarse breath sounds are diffusely present. Prolonged expiratory phase. Unable to identify wheezing due to significant coarse breath sounds. GASTROINTESTINAL: Abdomen soft, non-tender, nondistended. No guarding. MUSCULOSKELETAL: Rt upper extremity with edema. . No calf tenderness. NEUROLOGICAL: Awake and alert. Right upper extremity in sling. Strong right radial pulses. Able to wiggle his fingers. No tingling or numbness. Normal speech. A/P Problem List: (1) COPD (chronic obstructive pulmonary disease) ICD Code: J44.9 (2) Closed comminuted right humeral fracture ICD Code: S42.351A (3) UTI (urinary tract infection) ICD Code: N39.0 Assessment and Plan 85 y/o male with a history of HTN, COPD, HLD, and obesity presented to the ED with complaints of right shoulder pain. Closed comminuted right humeral fracture, xray shows comminuted fracture of the proximal humerus -Orthopedics was consulted. Have recommended non-operative management with sling and swath. Follow up in 2 weeks. -Pain management with [place] -Cont Right upper extremity with sling. Acute Kidney injury, base line creatine 1.0, 2.87 on admission -Improving. -Trend BMP -UA + for blood and LE with 40 WBC. Urine cx pending. -Renal US negative COPD, chronic, patient at one time was on home oxygen, chronic cough past 2 months, leukocytosis 13.5-->10.9, chest x-ray is shows interstitial prominence. -Dounebs - Levaquin 09/18 - Based on significant cough and lung exam today, will add Prednisone 50 mg PO daily (09/19) -robitussin AC for cough, sarahy bc patient forgets to ask for it -ABG pH 7.43, pO2 89, PCO2 57 -CPT -Resp walk test to determine need for home oxygen Abnormal UA -suspicious for UTI. Tx with Levaquin. Leukocytosis 13.5-->9.3, chest x-ray is shows interstitial prominence, possible pneumonia -UTI versus PNA. Tx with Levaquin. Monitor daily CBC - Blood cultures obtained 09/18, pending -lactic acid 0.7, CRP 4.23 HTN, chronic -Resume home medications: Coreg, Norvasc DVT prophylaxis: Heparin. Discharge Planning D/C pending clinical improvement from respiratory standpoint and urine culture results. Home oxygen walk test pending. D/C likely tomorrow to SNF. Problem Qualifiers (1) COPD (chronic obstructive pulmonary disease): Qualified Code: J44.9 - Chronic obstructive pulmonary disease, unspecified COPD type Irma Andre MD R3 September 19, 2016 09:02
[2016-09-19] MEDS: DONEPEZIL HCL 5 MG TAB PO SCH (09:31)
[2016-09-19] MEDS: CARVEDILOL 12.5 MG TAB PO SCH ×2 (09:31→22:06)
[2016-09-19] MEDS: ASPIRIN 81 MG CHEW TAB CHEW SCH (09:31)
[2016-09-19] MEDS: CITALOPRAM HYDROBROMIDE 20 MG TAB PO SCH (09:31)
[2016-09-19] MEDS: SODIUM CHLORIDE 0.9% FLUSH 10 ML FLUSH IV FLUSH SCH ×2 (09:32→21:00)
[2016-09-19] MEDS: amLODIPine BESYLATE 5 MG TAB PO SCH (09:32)
[2016-09-19] MEDS: guaiFENesin/CODEINE SYRUP 200 MG/20 MG/10 ML CUP PO SCH ×3 (09:34→18:48)
[2016-09-19] MEDS: predniSONE 50 MG TAB PO SCH (09:34)
[2016-09-19] MEDS: ACETAMINOPHEN/HYDROcodone 325 MG/5 MG TAB PO PRN ×2 (09:35→17:13)
[2016-09-19] MEDS: LEVOFLOXACIN 750 MG PREMIX INJ 150 ML IV SCH ×2 (12:52→17:00)
[2016-09-19] MEDS ORDERED: LEVOFLOXACIN 750 MG PREMIX INJ 150 ML IV SCH (17:00)
[2016-09-19] MEDS: TAMSULOSIN HCL 0.4 MG CAP PO SCH (22:06)
[2016-09-20] VITALS (8 sets, daily range): BP systolic 143–214; BP diastolic 63–101; PULSE 71–109; RESP 17–19; TEMP 95.5–97.6; O2SAT 92–98
[2016-09-20] MEDS: guaiFENesin/CODEINE SYRUP 200 MG/20 MG/10 ML CUP PO SCH ×3 (00:23→12:15)
[2016-09-20] MEDS: ACETAMINOPHEN/HYDROcodone 325 MG/5 MG TAB PO PRN ×3 (00:24→16:02)
[2016-09-20] MEDS: RESP: ALBUTEROL 2.5 MG/IPRATROPIUM 0.5 MG NEB (SCH) NEB ×3 (04:01→15:20)
[2016-09-20] MEDS: HEPARIN SODIUM - SQ 10,000 UNITS/ML VIAL SQ SCH ×2 (06:18→16:03)
[2016-09-20] MEDS: predniSONE 50 MG TAB PO SCH (09:12)
[2016-09-20] MEDS: ASPIRIN 81 MG CHEW TAB CHEW SCH (09:12)
[2016-09-20] MEDS: CITALOPRAM HYDROBROMIDE 20 MG TAB PO SCH (09:12)
[2016-09-20] MEDS: CARVEDILOL 12.5 MG TAB PO SCH (09:12)
[2016-09-20] MEDS: DONEPEZIL HCL 5 MG TAB PO SCH (09:12)
[2016-09-20] MEDS: amLODIPine BESYLATE 5 MG TAB PO SCH (09:12)
[2016-09-20] MEDS: SODIUM CHLORIDE 0.9% FLUSH 10 ML FLUSH IV FLUSH SCH (09:32)
[2016-09-20] MEDS: SODIUM CHLOR 0.9% 1000 ML INJ 1,000 ML IV SCH (11:10)
--- NOTE | 2016-09-20 12:09 | HHI.PR ---
Subjective Remarks Follow-up Right humerus fracture 09/20/16-patient seen and examined, denies any chest pain or shortness of breath. Would like to go to a rehabilitation facility. Objective Vitals Vital Signs Date Time Temp Pulse Resp B/P Pulse Ox O2 Delivery O2 Flow Rate FiO2 09/20/16 07:25 95.5 100 18 149/70 96 09/20/16 06:21 167/80 09/20/16 04:00 96.4 71 19 181/82 96 09/20/16 00:00 96.2 104 17 214/101 98 09/19/16 22:00 96.2 85 17 166/76 94 09/19/16 20:38 95 Nasal Cannula 2.00 09/19/16 20:00 78 09/19/16 19:24 Nasal Cannula 2.00 09/19/16 16:00 97.5 65 18 145/68 95 I/O 09/19/16 09/19/16 09/19/16 09/20/16 09/20/16 09/20/16 07:00 15:00 23:00 07:00 15:00 23:00 Intake Total 240 ml 1258 ml 480 ml Output Total 600 ml 450 ml 170 ml Balance -360 ml 808 ml 310 ml Intake Oral 240 ml 960 ml 480 ml IV Total 298 ml Output Urine Total 600 ml 450 ml 170 ml # Voids 4 # Bowel Movements 0 1 0 Result Diagram: 09/19/16 0501 09/19/16 0501 Imaging Last Impressions Renal Ultrasound 09/17/16 0000 Signed Impressions: Service Date/Time: Saturday, September 17, 2016 17:23 - CONCLUSION: Ultrasound appearance of the kidneys and urinary bladder within normal limits. Nonspecific splenomegaly. Davonte Lam MD Chest X-Ray 09/16/161657 Signed Impressions: Service Date/Time: August 17:02 - CONCLUSION: Normal examination. Diffuse interstitial prominence throughout the lungs Regino Vazquez MD Shoulder X-Ray 09/16/168 Signed Impressions: Service Date/Time: August 17:06 - CONCLUSION: 1. Comminuted fracture of the proximal humerus. 2. Degenerative spurring of the a.c. joint Abiodun Palencia MD Objective Remarks GENERAL: NAD SKIN: Warm and dry. HEAD: Normocephalic. EYES: No scleral icterus. No injection or drainage. NECK: Supple, trachea midline. No JVD or lymphadenopathy. CARDIOVASCULAR: Regular rate and rhythm without murmurs, gallops, or rubs. RESPIRATORY: Breath sounds equal bilaterally. No accessory muscle use. GASTROINTESTINAL: Abdomen soft, non-tender, nondistended. MUSCULOSKELETAL: No cyanosis, or edema. right arm in sling-neurovascular intact BACK: Nontender without obvious deformity. No CVA tenderness. Procedures none A/P Problem List: (1) Closed comminuted right humeral fracture ICD Code: S42.351A Status: Acute (2) Acute kidney injury ICD Code: N17.9 Status: Acute (3) COPD (chronic obstructive pulmonary disease) ICD Code: J44.9 Status: Chronic (4) HTN (hypertension) ICD Code: I10 Status: Chronic Assessment and Plan 85-year-old man with Closed comminuted right humeral fracture, xray shows comminuted fracture of the proximal humerus -Orthopedics was consulted. Have recommended non-operative management with sling and swath. Follow up in 2 weeks. -Pain management with [facility] -Cont Right upper extremity with sling. Acute Kidney injury, base line creatine 1.0, 2.87 on admission -Resolved -UA + for blood and LE with 40 WBC. Urine cx negative -Renal US negative COPD, chronic, patient at one time was on home oxygen, chronic cough past 2 months, leukocytosis 13.5-->10.9, chest x-ray is shows interstitial prominence. -Dounebs - Levaquin 09/18, Prednisone 50 mg PO daily (09/19), robitussin AC for cough, -ABG pH 7.43, pO2 89, PCO2 57 -CPT -Resp walk test to determine need for home oxygen Abnormal UA -suspicious for UTI. Tx with Levaquin. Urine culture negative Leukocytosis 13.5-->9.3, chest x-ray is shows interstitial prominence, possible pneumonia -UTI versus PNA. Tx with Levaquin. Monitor daily CBC - Blood cultures obtained 09/18, negative up to date -lactic acid 0.7, CRP 4.23 HTN, chronic -Continue home medications: Coreg, Norvasc DVT prophylaxis: Heparin Problem Qualifiers (1) COPD (chronic obstructive pulmonary disease): Qualified Code: J44.9 - Chronic obstructive pulmonary disease, unspecified COPD type Lavell Lozano MD September 20, 2016 12:09
[2016-09-20] MEDS ORDERED: PERI8.6T PO (12:13)
[2016-09-20] MEDS ORDERED: PRED5TAB PO (12:13)
[2016-09-20] MEDS ORDERED: HYDR-3516 PO (12:13)
[2016-09-20] MEDS ORDERED: IPRA17I INH (12:13)
[2016-09-20] MEDS ORDERED: GUAI100S5 PO (12:13)
[2016-09-20] MEDS ORDERED: AZIT250T3 PO (12:14)
--- NOTE | 2016-09-20 12:16 | HHI.DS ---
Discharge Summary Admission Date September 17, 2016 at 07:58 Discharge Date: September 20, 2016 Admitting Diagnosis Elevated Creatinine/Right humeral Fracture. (1) Closed comminuted right humeral fracture ICD Code: S42.351A (2) Acute kidney injury ICD Code: N17.9 (3) COPD (chronic obstructive pulmonary disease) ICD Code: J44.9 (4) HTN (hypertension) ICD Code: I10 Procedures none Brief History - From Admission History from patient, ER physician communication, and review of medical records. Patient reported that he was walking on his lawn and tripped on his toes and fell onto his right side. He reports that he simply tripped. She denies any premonitory symptoms prior to this fall. Denies hitting his head. Denies loss of consciousness. Patient denies any recent fevers/nausea/vomiting/diarrhea/urinary burning or pain on urination. Denies any hematemesis/hematochezia/melena/hematuria. Patient states that the fall actually happened on Tuesday. However for the next 1-1/2 days, he was having increasing pain on his right upper extremity around the shoulder areas and he finally decided to come to hospital. Denies history of frequent falls. Patient is noted to be coughing during my interview. He reports that this is his chronic cough for past several months. He does have history of COPD and uses inhalers at home. He reports that at one point, he was prescribed oxygen. Somehow the oxygen company is no longer in business here and therefore he states he lost his oxygen. He is requesting whether he could be placed back on oxygen at home because of this coughing episodes. CBC/BMP: 09/19/16 0501 09/19/16 0501 Significant Findings Laboratory Tests Test 09/17/16 09/18/16 09/18/16 09/19/16 19:35 03:47 12:00 05:01 Urine Protein 30 mg/dL (NEG-TRACE) Urine Ketones TRACE mg/dL (NEG) Urine Occult Blood MOD (NEG) Urine Leukocyte Esterase MOD (NEG) Urine RBC 121 /hpf (0-3) Urine WBC 40 /hpf (0-5) Urine Bacteria RARE /hpf (NONE) Urine Mucus FEW /lpf (OCC) Red Blood Count 4.17 MIL/MM3 3.90 MIL/MM3 (4.50-5.90) (4.50-5.90) Hemoglobin 11.9 GM/DL 11.4 GM/DL (13.0-17.0) (13.0-17.0) Hematocrit 36.5 % 33.6 % (39.0-51.0) (39.0-51.0) Neutrophils (%) (Auto) 71.8 % 73.7 % (16.0-70.0) (16.0-70.0) Lymphocytes (%) (Auto) 8.4 % (9.0-44.0) Monocytes (%) (Auto) 12.4 % 11.5 % (0.0-8.0) (0.0-8.0) Eosinophils (%) (Auto) 6.0 % (0.0-4.0) 5.2 % (0.0-4.0) Lymphocytes # (Auto) 0.8 TH/MM3 0.8 TH/MM3 (1.0-4.8) (1.0-4.8) Monocytes # (Auto) 1.2 TH/MM3 1.0 TH/MM3 (0-0.9) (0-0.9) Eosinophils # (Auto) 0.6 TH/MM3 0.5 TH/MM3 (0-0.4) (0-0.4) Blood Urea Nitrogen 44 MG/DL (7-18) 38 MG/DL (7-18) Creatinine 1.37 MG/DL (0.60-1.30) Estimat Glomerular Filtration 50 ML/MIN (>89) 61 ML/MIN (>89) Rate Phosphorus Level 2.4 MG/DL (2.5-4.9) C-Reactive Protein 4.23 MG/DL (0.00-0.30) Albumin 3.0 GM/DL (3.4-5.0) Blood Gas Oxygen Saturation 89 % (90-100) Arterial Blood pH 7.43 (7.380-7.420) Arterial Blood Partial 57 mmHg Pressure O2 (61-120) PE at Discharge GENERAL: NAD SKIN: Warm and dry. HEAD: Normocephalic. EYES: No scleral icterus. No injection or drainage. NECK: Supple, trachea midline. No JVD or lymphadenopathy. CARDIOVASCULAR: Regular rate and rhythm without murmurs, gallops, or rubs. RESPIRATORY: Breath sounds equal bilaterally. No accessory muscle use. GASTROINTESTINAL: Abdomen soft, non-tender, nondistended. MUSCULOSKELETAL: No cyanosis, or edema. right arm in sling-neurovascular intact BACK: Nontender without obvious deformity. No CVA tenderness. Hospital Course Closed comminuted right humeral fracture, xray shows comminuted fracture of the proximal humerus -Orthopedics was consulted. Have recommended non-operative management with sling and swath. Follow up in 2 weeks. -Pain management with [place] -Cont Right upper extremity with sling. Acute Kidney injury, base line creatine 1.0, 2.87 on admission -Resolved -UA + for blood and LE with 40 WBC. Urine cx negative -Renal US negative COPD, chronic, patient at one time was on home oxygen, chronic cough past 2 months, leukocytosis 13.5-->10.9, chest x-ray is shows interstitial prominence. -Dounebs - Levaquin 09/18, Prednisone 50 mg PO daily (09/19), robitussin AC for cough, -ABG pH 7.43, pO2 89, PCO2 57 -CPT -Resp walk test to determine need for home oxygen Abnormal UA -suspicious for UTI. Tx with Levaquin. However Urine culture negative Leukocytosis 13.5-->9.3, chest x-ray is shows interstitial prominence, possible pneumonia -UTI versus PNA. Tx with Levaquin. Monitor daily CBC - Blood cultures obtained 09/18, negative up to date -lactic acid 0.7, CRP 4.23 HTN, chronic -Continue home medications: Coreg, Norvasc DVT prophylaxis: Heparin Pt Condition on Discharge: Stable Discharge Disposition: Discharge to SNF Discharge Time: > 30 minutes Discharge Instructions DIET: Follow Instructions for: Heart Healthy Diet Activities you can perform: Regular-No Restrictions Follow up Referrals: PCP Follow-up - 2-3 Days Surgical - 2 Weeks New Medications: Azithromycin (Azithromycin) 250 Mg Tab 250 MG PO DAILY Infection #5 Ref 0 TAB Ipratropium HFA 12.9 GM Inh (Atrovent HFA 12.9 GM Inh) 17 Mcg/Act Aer 2 PUFF INH Q6HR PRN SHORTNESS OF BREATH #1 Ref 1 INHALER Prednisone (Prednisone) 5 Mg Tab 5 MG PO DAILY Infection #5 Ref 0 TAB Sennosides-Docusate Sodium (Karina-Colace) 8.6-50 Mg Tab 1 TAB PO BID PRN Constipation #10 Ref 0 TAB Guaifenesin-Codeine Liq (Guaifenesin-Codeine Liq) 100-10 Mg/5 Ml Soln 10 ML PO Q6HR Control Inflammation #10 ML Hydrocodone-Acetaminophen (Hydrocodone-Acetaminophen) 5-325 mg Tab 1 TAB PO Q4H PRN PAIN SCALE 5 TO 7 #10 TAB Continued Medications: Amlodipine (Amlodipine) 5 Mg Tab 5 MG PO DAILY Blood Pressure Management #30 Ref 0 TAB Aspirin (Aspirin Low Dose) 81 Mg Chew 81 MG CHEW DAILY Ref 0 TAB Carvedilol (Carvedilol) 12.5 Mg Tab 12.5 MG PO BID #60 Ref 0 TAB Citalopram (Citalopram) 20 Mg Tab 20 MG PO DAILY Control Depression #30 Ref 0 TAB Donepezil Hydrochloride (Donepezil Hydrochloride) 5 Mg Tab 1 TAB PO DAILY Multiple Vitamins W/ Minerals (Multivitamin Adults) 1 Tab 1 TAB PO DAILY Nutritional Supplement Ref 0 TAB Tamsulosin (Tamsulosin) 0.4 Mg Cap 0.4 MG PO HS Manage Prostate Problems #30 Ref 0 CAP Lavell Lozano MD September 20, 2016 12:15
[2016-09-20] MEDS ORDERED: LEVOFLOXACIN 750 MG TAB PO SCH (17:00)
== END 2016-09-20 17:38 | DRG 683 ==
LOC: NEPC 16:20 → NEDA 19:18 → NEPHCDU 09-17 01:03 → OBSVTOIN 09-17 07:58 → N06A 09-17 15:29 → N06B 09-20 15:13 → N06A 09-20 15:15
PROVIDERS: ADMIT Hospitalist; ATTEND Hospitalist
DX: N17.9 Acute kidney failure, unspecified (principal); N39.0 Urinary tract infection, site not specified; J44.9 Chronic obstructive pulmonary disease, unspecified; S42.201A Unspecified fracture of upper end of right humerus, initial encounter for closed fracture; E86.0 Dehydration; I10 Essential (primary) hypertension; F32.9 Major depressive disorder, single episode, unspecified; F41.9 Anxiety disorder, unspecified; E78.00 Pure hypercholesterolemia, unspecified; I49.1 Atrial premature depolarization; W01.0XXA Fall on same level from slipping, tripping and stumbling without subsequent striking against object, initial encounter; Y92.007 Garden or yard of unspecified non-institutional (private) residence as the place of occurrence of the external cause; E78.5 Hyperlipidemia, unspecified; Z87.891 Personal history of nicotine dependence
CPT/HCPCS: 36600; 71010; 73030; 76775; 76937; 80048; 80053; 80069; 81001; 82550; 82552; 82570; 82805; 83605; 83735; 83880; 84300; 84484; 85025; 85610; 85730; 86140; 87040; 87086; 93005; 94150; 94620; 94640; 94664; 94667; 94668; J1644; J1956; J7030; J7050; J7512; L0150

== ENCOUNTER 2017-02-02 09:47 | Emergency (ER) | payer MEDICARE, OTHER ==
[~2017-02-02] VITALS: Ht 177.8 cm; Wt 102.0 kg
[~2017-02-02 09:47] MED LIST changes: -ADVA250A INH; -ALBU0.086 INH; +AMLO5TAB2 PO; -AMLO5TAB22 PO; +ASPI81CH37 CHEW; -ASPI81TA82 PO; +AZIT250T3 PO; -CARD8TAB6 PO; +CARV12.52 PO; +CITA20TA4 PO; -DOCU1CAP39 PO; +DONE1TAB90 PO; +GUAI100S5 PO; -HYDR-2768 PO; +HYDR-3516 PO; +IPRA17I INH; -LEVA500T PO; -MEDR4PAK3 PO; -MILKSUS5 PO; +MULT1TAB84 PO; -NIFE20 PO; +PERI8.6T PO; +PRED5TAB PO; -PROS5TAB2 PO; -SIMV5TAB3 PO; -SULF500 PO; +TAMS0.4C4 PO; -TAMS0.4C67 PO
[2017-02-02 09:48] VITALS: BP 172/83; PULSE 71; RESP 18; TEMP 97.8; O2SAT 96
[2017-02-02] MEDS ORDERED: MEMA1TAB PO (10:13)
[2017-02-02] MEDS ORDERED: CENTCHW4 CHEW (10:13)
[2017-02-02] MEDS ORDERED: CHOL5000 PO (10:13)
[2017-02-02] MEDS ORDERED: RESP: ALBUTEROL 2.5 MG/IPRATROPIUM 0.5 MG NEB (SCH) NEB ONE (10:30)
--- NOTE | 2017-02-02 10:34 | PD ---
HPI Chief Complaint: Complaint Time Seen by Provider: 09:59 Travel History International Travel<30 days: No Contact w/Intl Traveler<30days: No Traveled to known affect area: No History of Present Illness HPI This is an 86-year-old man presents to the emergency department complaining of blood in his urine. It's been her for the past 3 days or so. Initially dark red blood with clots in it, now lightened up today. She did drink plenty of fluids. No history of previous similar problems. Denies a history of prostate problems but is on tamsulosin. He is to follow with the urologist but has not seen one in several years. He states he gets about 4 times a night to use the urinal. Denies any dysuria polyuria or other urinary changes. Is on a baby aspirin but no other blood thinners. No other complaints. History Past Medical History Narrative Medical COPD Memory problems Apparent BPH Tetanus Vaccination: < 5 Years Social History Alcohol Use: No Tobacco Use: No Allergies-Medications (Allergen,Severity, Reaction): Coded Allergies: No Known Allergies (Verified , 02/02/17) Reported Meds & Prescriptions Reported Meds & Active Scripts Active Reported Memantine 5 Mg Tab 5 Mg PO DAILY Vitamin D3 (Cholecalciferol) 5,000 Unit Cap 5,000 Units PO DAILY Centrum (Multiple Vitamins W/ Minerals) 1 Chew 1 Tab CHEW DAILY Donepezil Hydrochloride 5 Mg Tab 2 Tab PO DAILY Amlodipine (Amlodipine Besylate) 5 Mg Tab 5 Mg PO DAILY Tamsulosin (Tamsulosin HCl) 0.4 Mg Cap 0.4 Mg PO BID Citalopram (Citalopram Hydrobromide) 20 Mg Tab 10 Mg PO DAILY Carvedilol 12.5 Mg Tab 12.5 Mg PO BID Aspirin Low Dose (Aspirin) 81 Mg Chew 81 Mg CHEW DAILY Review of Systems Except as stated in HPI: all other systems reviewed are Neg Physical Exam Narrative GENERAL: Well-appearing 86 old man, no acute distress. SKIN: Focused skin assessment warm/dry. HEAD: Atraumatic. Normocephalic. CARDIOVASCULAR: Regular rate and rhythm. No murmur appreciated. RESPIRATORY: No accessory muscle use. Clear to auscultation. Breath sounds equal bilaterally. GASTROINTESTINAL: Abdomen is flat and soft. Is no distention. Is no superpubic tenderness. MUSCULOSKELETAL: No obvious deformities. No edema. NEUROLOGICAL: Awake and alert. Data Data Last Documented VS Vital Signs Date Time Temp Pulse Resp B/P (MAP) Pulse Ox O2 Delivery O2 Flow Rate FiO2 02/02/17 12:16 02/02/17 09:48 97.8 71 18 96 Room Air Orders Orders Urinalysis - C+S If Indicated (02/02/17 09:59) Basic Metabolic Panel (Bmp) (02/02/17 10:17) Albuterol-Ipratropium Neb (Duoneb Neb) (02/02/17 10:30) Urine Culture (02/02/17 10:13) Resp Acapella/Pep/Chest Vibra (02/02/17 ) Labs Laboratory Tests Test 02/02/17 10:13 02/02/17 10:33 Urine Color BROWN Urine Turbidity HAZY Urine pH 6.0 Urine Specific [place] 1.019 Urine Protein 30 mg/dL Urine Glucose (UA) NEG mg/dL Urine Ketones TRACE mg/dL Urine Occult Blood LARGE Urine Nitrite NEG Urine Bilirubin NEG Urine Urobilinogen LESS THAN 2.0 MG/DL Urine Leukocyte Esterase MOD Urine RBC /hpf Urine WBC 50 /hpf Urine Bacteria OCC /hpf Urine Mucus FEW /lpf Microscopic Urinalysis Comment CULTURE INDICATED Blood Urea Nitrogen 24 MG/DL Creatinine 1.34 MG/DL Random Glucose 85 MG/DL Calcium Level 8.9 MG/DL Sodium Level 135 MEQ/L Potassium Level 4.2 MEQ/L Chloride Level 100 MEQ/L Carbon Dioxide Level 28.0 MEQ/L Anion Gap 7 MEQ/L Estimat Glomerular Filtration Rate 51 ML/MIN [facility] Medical Decision Making Medical Screen Exam Complete: Yes Emergency Medical Condition: Yes Interpretation(s) LABS: UA with gross hematuria BMP was minimally elevated BUN/creatinine Differential Diagnosis BPH, UTI, obstructive uropathy, renal failure, malignancy, other Narrative Course Medical decision making 86-year-old man with painless hematuria and a history of nocturia. Will check urine, BMP, outpatient follow-up with urology. FINAL: Minimally elevated BUN and creatinine. Looks well. Urine with mostly gross hematuria. Sent for culture. No clear evidence of UTI. Respiratory recommended flutter valve for patient for pulmonary rehabilitation. We'll order the forearm as well. Diagnosis Primary Impression: Painless hematuria Referrals: Mello Wing DO 1 week Patient Instructions: General Instructions Additional Instructions: Follow-up with Dr. Wing in one week as discussed. Return to the emergency department for any new or worsening symptoms. Med/Other Pt SpecificInfo: No Change to Meds Disposition: 01 DISCHARGE HOME Condition: Regino Rolon MD Feb 02, 2017 10:34
[2017-02-02 10:42] LABS: BACTERIA, URINE OCC /hpf; BLOOD, URINE LARGE (NEG); GLUCOSE,URINE NEG (NEG); KETONE, URINE TRACE mg/dL (NEG); MUCUS URINE FEW /lpf (OCC); NITRITE,URINE NEG (NEG)
[2017-02-02 10:43] LABS: URINE COLOR BROWN (YELLW/STRAW)
[2017-02-02 10:44] LABS: COMMENT (UR) CULTURE INDICATED; CULTURE IF INDICATED CULTURE INDICATED
[2017-02-02 11:16] LABS: POTASSIUM 4.2 MEQ/L (3.5-5.1)
== END 2017-02-02 12:26 | disposition home or self-care (01) ==
LOC: NEPD 09:47
DX: R31.9 Hematuria, unspecified (principal); B96.89 Other specified bacterial agents as the cause of diseases classified elsewhere; J44.9 Chronic obstructive pulmonary disease, unspecified
CPT/HCPCS: 80048; 81001; 87086; 94664; 94667; 99283